=== PATIENT | female | born 1940 | race Caucasian/White ===

== ENCOUNTER → 2022-12-20 11:54 | Outpatient (CLI) | payer MEDICARE, SELFPAY ==
--- NOTE | ~2022-12-20 | DEXA_ITS ---
Bone Density Report Name: MARIANNE VALENTINE Age: 82 Sex: Female Ethnicity: White Date of : 1940 Indication: postmenopausal; screening for osteoporosis; height loss; hysterectomy; Referring Provider: KYLIE, PERNELL Bryant Study: Bone densitometry was performed. Exam Date: December 20, 2022 Accession number: [id number] Bone Density: Region BMD T-score Z-score Classification AP Spine (L1-L4) 1.411 3.3 6.0 Normal Femoral Neck (Left) 0.878 0.3 2.6 Normal Total Hip (Left) 1.098 1.3 3.3 Normal Femoral Neck (Right) 0.875 0.2 2.5 Normal Total Hip (Right) 1.133 1.6 3.6 Normal Total Hip Mean 1.116 1.5 3.5 Normal World Health Organization criteria for BMD impression classify patients as: Normal (T-score at or above -1.0), Osteopenia (T-score between -1.0 and -2.5), or Osteoporosis (T-score at or below -2.5). 10-year Fracture Risk: FRAX not reported because: All T-scores for Spine Total, Hip Total, Femoral Neck at or above -1.0 Previous Exams: Region Exam Age BMD T-score BMD Change BMD Change Date g/cm2 vs Baseline vs Previous AP Spine(L1-L4) 12/20/2022 82 1.411 3.3 0.045* 0.045* 07/14/2008 67 1.366 2.9 Total Hip(Left) 12/20/2022 82 1.098 1.3 -0.114* -0.114* 07/14/2008 67 1.212 2.2 Total Hip(Right) 12/20/2022 82 1.133 1.6 -0.074* -0.074* 07/14/2008 67 1.207 2.2 *Denotes significance at 95% confidence level, LSC for AP Spine = 0.022 g/cm2, LSC for Total Hip = 0.027 g/cm2 Clinical Information Provided by Patient: Has used the following medications: Vitamin D Has the following medical conditions: Hysterectomy Patient maximum height was 66 Menopause Age: 52 Drinks caffeinated beverages Onset of menses at age 11.5 Number of children 3 Impression: The patient has normal bone mass. The BMD for the Total Hip(Left) decreased, changing by -0.114 since the last DXA exam. The BMD for the Total Hip(Right) decreased, changing by -0.074 since the last DXA exam. Discussion: LOW RISK OF FRACTURE; BONE DENSITY IS WELL ABOVE THE MINIMUM DESIRABLE LEVEL AND ABOVE AVERAGE FOR AGE AND SEX AT ALL SKELETAL SITES TESTED. This person's bone density is above expected limits for age and sex. This is rarely clinically significant, but should be pursued if there are significant musculoskeletal complaints. The patient should follow a healthful lifestyle (good nutrition with adequate calcium and vitamin D, and appropri
== END ==
PROVIDERS: PCP Nurse Practitioner Family; Visit Provider Nurse Practitioner Family
DX: Z13.820 Encounter for screening for osteoporosis (principal); Z78.0 Asymptomatic menopausal state
CPT/HCPCS: 77080

== ENCOUNTER 2023-08-15 14:09 | Outpatient (CLI) | payer MEDICARE, SELFPAY ==
--- NOTE | ~2023-08-15 | CT_ITS ---
EXAMINATION: CT abdomen pelvis w con DATE: 08/15/2023 14:37 INDICATION: Abdominal tenderness of left lower quadrant. TECHNIQUE: Computed tomography (CT) of the abdomen and pelvis was performed with 100 mL Omnipaque 350 intravenous contrast. Automated exposure control and iterative reconstruction technique were employe d. The dose-length product was 741.87 mGy-cm. COMPARISON: None. FINDINGS: The visualized portions of the lung bases demonstrate mild atelectasis. There is mild bronc hiectasis bilaterally. No pleural effusion. The heart size is normal. No pericardial effusion. The li hannah is normal. There is a gallstone in the gallbladder, which is normal in size. The spleen, and adre nal glands are normal. There is a 10 mm cystic lesion in the tail of the pancreas, likely benign. The re is a 13 mm cyst in right kidney. Left kidney is normal. There is diverticulosis of the colon witho ut evidence of diverticulitis. There are changes of appendectomy. There are no pathologically enlarge d lymph nodes. Aortic atherosclerosis is noted. 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 There is no free intraperitoneal fluid. There is a left inguinal hernia containing fat. There is severe thoracic and lumbar spondylosis. IMPRESSION: 1. Left inguinal hernia containing fat. Reviewed, dictated and finalized at location [facility] [employer]
[2023-08-15 14:32] LABS: Estimated Glomerular Filt Rate 60
== END 2023-08-15 14:10 | disposition home or self-care (01) ==
PROVIDERS: PCP Nurse Practitioner Family; Visit Provider Nurse Practitioner Family
DX: R10.814 Left lower quadrant abdominal tenderness (principal); K40.90 Unilateral inguinal hernia, without obstruction or gangrene, not specified as recurrent
CPT/HCPCS: 74177; Q9967

== ENCOUNTER 2024-05-05 12:53 | Outpatient (CLI) | payer MEDICARE, SELFPAY ==
--- NOTE | ~2024-05-05 | CT_ITS ---
Non-contrast CT scan of the Abdomen and Pelvis Clinical indication: Abdominal pain Technique: 2.5 mm axial scans were obtained through the abdomen and pelvis without intravenous or or al contrast. Dose reduction technique was used on this scan by utilizing automated exposure control a nd iterative reconstruction technique. The dose-length product (DLP) was 551.89 mGy-cm. COMPARISON: 08/15/2023 Findings: Images through the lung bases reveal no abnormalities. There is no evidence of renal or ureteral calculi. The kidneys and the ureters are nondilated. The liver, spleen, pancreas, and adrenals appear normal. Small gallstone present. There are atheroscl erotic calcifications of the aorta. . There is no evidence of bowel obstruction. Images through the pelvis were performed. There is trace pelvic free fluid. Urinary bladder unremarka ble. No pelvic mass seen. Impression: Small gallstone. Trace pelvic free fluid, nonspecific. Reviewed, dictated and finalized at location . Impression: Small gallstone. Trace pelvic free fluid, nonspecific.
== END 2024-05-05 12:54 | disposition home or self-care (01) ==
LOC: MICIMG 12:53
PROVIDERS: PCP Nurse Practitioner Family; Visit Provider Nurse Practitioner Family
DX: R10.11 Right upper quadrant pain (principal); K80.20 Calculus of gallbladder without cholecystitis without obstruction
CPT/HCPCS: 74176

== ENCOUNTER 2024-07-02 11:17 | Outpatient (CLI) | payer MEDICARE, SELFPAY ==
--- NOTE | ~2024-07-02 | MM_ITS ---
EXAMINATION: MM screening cristofer BI w davian HISTORY: Screening mammogram TECHNIQUE: Craniocaudal and mediolateral oblique 3-D tomosynthesis images were obtained and synthetic 2-D images were generated. CAD analysis was submitted and interpreted. COMPARISON: No prior mammogram is available for comparison at this institution. BREAST PARENCHYMAL COMPOSITION:Not Dense. The breasts are almost entirely fatty FINDINGS: There is an 8 mm mass at the upper, outer left breast, posterior depth. No parenchymal abno rmality the right breast. No suspicious microcalcifications. IMPRESSION: 8 mm upper, outer left breast mass posteriorly. Spot compression views and ultrasound are recommende d for further evaluation. BI-RADS Category 0: Incomplete: Needs additional imaging evaluation. Reviewed, dictated and finalized at [facility]. [employer] IMPRESSION: 8 mm upper, outer left breast mass posteriorly. Spot compression views and ult rasound are recommended for further evaluation. BI-RADS Category 0: Incomplete: Needs additional imaging evaluation.
== END 2024-07-02 11:18 | disposition home or self-care (01) ==
PROVIDERS: PCP Nurse Practitioner Family; Visit Provider Nurse Practitioner Family
DX: Z12.31 Encounter for screening mammogram for malignant neoplasm of breast (principal); N63.21 Unspecified lump in the left breast, upper outer quadrant
CPT/HCPCS: 77063; 77067